=== PATIENT | male | born 1945 | race Two or more races ===

== ENCOUNTER 2022-08-04 03:22 | Emergency (ER) | payer BC ==
[~2022-08-04] VITALS: Ht 177.8 cm; Wt 98.1 kg
[~2022-08-04 03:22] MED LIST: ASPI81CH43; ATEN-60; LOVA40TA46; [UNRECOGNIZED DRUG - CODE]
[2022-08-04 04:12] LABS: Urine Bacteria NONE SEEN /hpf (None Seen); Urine Blood Negative /uL (Negative); Urine Mucus FEW (None Seen); Urine Specific Gravity 1.032 (1.001-1.035); Urine WBC 1 /hpf (0 - 3)
[2022-08-04 04:44] LABS: Basophils # (auto) 0.1 10 ^3/uL (0-0.2); Basophils % (auto) 1.1 % (0.0-2.0); Eosinophils # (auto) 0.3 10 ^3/uL (0-0.8); Eosinophils % (auto) 3.3 % (0.0-7.0); Hemoglobin 15.3 g/dL (13.5-17.5); Lymphocytes # (auto) 1.4 10 ^3/uL (0.4-5.4); Lymphocytes % (auto) 17.5 % (10.0-50.0); Mean Corpuscular Hemoglobin 33.1 pg (28.0-32.0); Mean Corpuscular Hgb Conc. 35.5 g/dL (32.0-36.0); Mean Corpuscular Volume 93.3 fL (80.0-100.0); Monocytes # (auto) 0.4 10 ^3/uL (0-1.3); Monocytes % (auto) 5.4 % (0.0-12.0); Neutrophils # (auto) 5.9 10 ^3/uL (1.6-8.6); Neutrophils % (auto) 72.7 % (37.0-80.0); Nucleated Red Blood Cells % 0.1 %; Red Blood Cells 4.61 10^6/uL (4.5-5.90); Red Cell Distribution Width 13.4 % (11.8-14.3); White Blood Cell 8.2 10^3/uL (4.4-10.8)
[2022-08-04 04:50] LABS: Albumin 3.9 g/dL (3.4-5.0); Calcium 8.8 mg/dL (8.5-10.1); Potassium 3.3 mmol/L (3.5-5.1)
[2022-08-04 04:54] LABS: BUN/Creatinine Ratio 28.9 (10.0-20.0); Bilirubin, Total 1.1 mg/dL (0.2-1.0); Total Protein 7.5 g/dL (6.4-8.2)
[2022-08-04] MEDS: LIDOCAINE VISCOUS 2% 15ML UD PO ONE (06:45)
[2022-08-04] MEDS: MAALOX PLUS or MAALOX 30 ML PO ONE (07:29)
[2022-08-04] MEDS: ONDANSETRON ODT 4 MG TAB PO ONE (07:29)
[2022-08-04] MEDS: FAMOTIDINE 20 MG TAB PO ONE (07:29)
[2022-08-04] MEDS: DICYCLOMINE HCL 10 MG CAP PO ONE (07:29)
[2022-08-04 07:32] VITALS: BP 177/89
[2022-08-04] MEDS ORDERED: CIPR500T4 PO (07:55)
== END 2022-08-04 08:34 | disposition home or self-care (01) ==
LOC: ER 03:22
DX: K76.0 Fatty (change of) liver, not elsewhere classified (principal); K57.30 Diverticulosis of large intestine without perforation or abscess without bleeding; K83.8 Other specified diseases of biliary tract; R19.7 Diarrhea, unspecified; F10.20 Alcohol dependence, uncomplicated; Z96.651 Presence of right artificial knee joint; Z98.890 Other specified postprocedural states; Y90.9 Presence of alcohol in blood, level not specified
CPT/HCPCS: 36415; 74176; 80053; 81001; 83690; 85025; 93005; 99284; J0500; Q0162